=== PATIENT | male | born 2000 | race Caucasian/White ===

== ENCOUNTER 2022-08-21 04:48 | Emergency (ER) | payer OTHER ==
[~2022-08-21] VITALS: Ht 172.7 cm; Wt 83.9 kg
--- NOTE | 2022-08-21 04:50 | NUR ---
PT ARYAN CHRadha FOR PRE BOOK, TAKEN TO CHAIR
[2022-08-21 04:51] VITALS: BP 132/74
[2022-08-21 05:08] VITALS: BP 132/74
--- NOTE | 2022-08-21 05:08 | NUR ---
DISCHARGED IN CUSTODY OF [facility]. ACI WERE GIVEN WITH UNDERSTANDING EXPRESSED
== END 2022-08-21 05:08 ==
LOC: MED 04:48
CPT/HCPCS: 99283